=== PATIENT | male | born 1955 ===

== ENCOUNTER 2018-05-07 05:47 | Emergency (ER) | payer OTHER ==
--- NOTE | 2018-05-07 06:01 | ED PDOC ---
Arrival/HPI - General Time Seen by Provider: 05/07/18 05:58 Historian: Patient - History of Present Illness Narrative History of Present Illness (Text): 05/07/18 05:59 El Langley is a 63 year old male, whose past medical history includes prostate cancer s/p prostatectomy and erectile dysfunction, who presented to the emergency department complaining of a priapism since yesterday evening. Patient states he was seen by his urologist yesterday evening and received an injection to help him achieve an erection. Patient states since then he has been experiencing a prolonged erection without any relief. Patient denies any fever, chest pain, abdominal pain, nausea, vomiting, urinary symptoms, back pain, headache, dizziness, or any other complaints. Urologist: Dr. Lelia Lopez Symptom Onset: Gradual Symptom Course: Unchanged Activities at Onset: Light Context: Home Past Medical History - Provider Review Nursing Documentation Reviewed: Yes Family/Social History - Physician Review Nursing Documentation Reviewed: Yes Family/Social History: Unknown Family HX Allergies/Home Meds Allergies/Adverse Reactions: Allergies No Known Allergies Allergy (Verified 05/07/18 06:03) Home Medications: Home Meds Medication Instructions Recorded Confirmed Olmesartan Medoxomil [Benicar] 20 mg PO DAILY 05/07/18 05/07/18 Rosuvastatin Calcium [Crestor] 5 mg PO DAILY 05/07/18 05/07/18 hydroCHLOROthiazide [Hydrodiuril] 25 mg PO DAILY 05/07/18 05/07/18 Review of Systems - Physician Review All systems were reviewed & negative as marked: Yes - Review of Systems Constitutional: Normal. absent: Fevers Eyes: Normal ENT: Normal Respiratory: Normal. absent: SOB, Cough Cardiovascular: Normal. absent: Chest Pain Gastrointestinal: Normal. absent: Abdominal Pain, Diarrhea, Nausea, Vomiting Genitourinary Male: Other (+priapism). absent: Dysuria, Frequency, Hematuria, Urinary Output Changes Musculoskeletal: Normal. absent: Back Pain, Neck Pain Skin: Normal. absent: Rash Neurological: Normal. absent: Headache, Dizziness Endocrine: Normal Hemo/Lymphatic: Normal Psychiatric: Normal Physical Exam Vital Signs Reviewed: Yes Temperature: Afebrile Blood Pressure: Normal Pulse: Regular Respiratory Rate: Normal Appearance: Positive for: Well-Appearing, Non-Toxic, Comfortable Pain Distress: None Mental Status: Positive for: Alert and Oriented X 3 - Systems Exam Head: Present: Atraumatic, Normocephalic Pupils: Present: PERRL Extroacular Muscles: Present: EOMI Conjunctiva: Present: Normal Mouth: Present: Moist Mucous Membranes Neck: Present: Normal Range of Motion Respiratory/Chest: Present: Clear to Auscultation, Good Air Exchange. No: Respiratory Distress, Accessory Muscle Use Cardiovascular: Present: Regular Rate and Rhythm, Normal S1, S2. No: Murmurs Abdomen: No: Tenderness, Distention, Peritoneal Signs Genitourinary Male: Present: Other (Priapism) Back: Present: Normal Inspection Upper Extremity: Present: Normal Inspection. No: Cyanosis, Edema Lower Extremity: Present: Normal Inspection. No: Edema Neurological: Present: GCS=15, CN II-XII Intact, Speech Normal Skin: Present: Warm, Dry, Normal Color. No: Rashes Psychiatric: Present: Alert, Oriented x 3, Normal Insight, Normal Concentration Medical Decision Making ED Course and Treatment: 05/07/18 05:59 Impression: 63 year old male complaining of a priapism since yesterday evening. Plan: -- Phenylephrine -- Reassess and disposition Progress Notes: 05/07/18 06:[address] Lelia Lopez, urologist, who states he will come to the emergency department to evaluate pt. - Scribe Statement The provider has reviewed the documentation as recorded by the Chanda Rosenberg Provider Scribe Attestation: All medical record entries made by the Luchoiblawrence were at my direction and personally dictated by me. I have reviewed the chart and agree that the record accurately reflects my personal performance of the history, physical exam, medical decision making, and the department course for this patient. I have also personally directed, reviewed, and agree with the discharge instructions and disposition.
[2018-05-07] MEDS ORDERED: Phenylephrine for priapism 0.1 mg/mL Syringe IN-CAVERNO SCH ×2 (06:15→07:10)
--- NOTE | 2018-05-07 13:39 | ED PDOC ---
Physical Exam Vital Signs Reviewed: Yes Vital Signs Temp Pulse Resp BP Pulse Ox 05/07/18 10:09 70 17 112/72 99 05/07/18 06:00 98.5 F 83 18 98/59 L 97 Temperature: Afebrile Blood Pressure: Normal Pulse: Regular Respiratory Rate: Normal Appearance: Positive for: Well-Appearing, Non-Toxic, Comfortable Pain Distress: None Mental Status: Positive for: Alert and Oriented X 3 Medical Decision Making ED Course and Treatment: 05/07/18 13:[address] Jaren August. Already contacted by Dr. Geronimo. 05/07/18 11:[address] August, who treated him and was advised to watch the patient. Pt advised to follow up and if symptoms did not resolve. 05/07/18 12:15 Pt has no complaints, no symptoms. - Medication Orders Current Medication Orders: Discontinued Medications Phenylephrine HCl (Phenylephrine For Priapism) 0.1 mg IN-CAVERNO Q5M FREDO Stop: 05/07/18 07:11 - Scribe Statement The provider has reviewed the documentation as recorded by the Scribe El Baker All medical record entries made by the Scribe were at my direction and personally dictated by me. I have reviewed the chart and agree that the record accurately reflects my personal performance of the history, physical exam, medical decision making, and the department course for this patient. I have also personally directed, reviewed, and agree with the discharge instructions and disposition. Disposition/Present on Arrival - Present on Arrival Any Indicators Present on Arrival: No History of DVT/PE: No History of Uncontrolled Diabetes: No Urinary Catheter: No History of Decub. Ulcer: No History Surgical Site Infection Following: None - Disposition Have Diagnosis and Disposition been Completed?: Yes Diagnosis: Prolonged erection Disposition: HOME/ ROUTINE Disposition Time: 11:30 Condition: GOOD Discharge Instructions (ExitCare): Priapism Additional Instructions: ARJUN LUA, thank you for letting us take care of you today. The emergency medical care you received today was directed at your acute symptoms. If you were prescribed any medication, please fill it and take as directed. It may take several days for your symptoms to resolve. Return to the Emergency Department if your symptoms worsen, do not improve, or if you have any other problems. Please contact your doctor or call one of the physicians/clinics you have been referred to that are listed on the Patient Visit Information form that is included in your discharge packet. Bring any paperwork you were given at discharge with you along with any medications you are taking to your follow up visit. Our treatment cannot replace ongoing medical care by a primary care provider outside of the emergency department. Thank you for allowing the [facility] team to be part of your care today. Follow up with Dr. Lopez in 2-3 days for re-evaluation and further management. Referrals: Jaren Lopez MD [Staff Provider] - Follow up with primary Forms: [employer] ([place])
[2018-05-07 13:50] VITALS: BP 120/78; PULSE 68; RESP 18; TEMP 98; O2SAT 98
== END 2018-05-07 13:47 | disposition home or self-care (01) ==
LOC: ED 05:47
DX: N48.30 Priapism, unspecified (principal)